=== PATIENT | female | born 1950 | race Two or more races ===

== ENCOUNTER 2018-04-10 21:34 | Emergency (ER) | payer OTHER ==
[~2018-04-10] VITALS: Ht 157.5 cm; Wt 77.1 kg
[2018-04-10 22:30] LABS: Basophils # (auto) 0.1 uL; Basophils % (auto) 0.6 % (0.0-2.0); Eosinophils # (auto) 0.2 uL; Eosinophils % (auto) 1.4 % (0.0-7.0); Hematocrit 43.8 % (36.0-46.0); Hemoglobin 14.7 g/dL (12.2-16.2); Lymphocytes # (auto) 5.2 uL; Lymphocytes % (auto) 31.3 % (10.0-50.0); Mean Corpuscular Hemoglobin 31.5 pg (28.0-32.0); Mean Corpuscular Hgb Conc. 33.5 g/dL (32.0-36.0); Mean Corpuscular Volume 93.9 fL (80.0-100.0); Monocytes # (auto) 0.8 uL; Monocytes % (auto) 5.1 % (0.0-12.0); Neutrophils # (auto) 10.3 uL; Neutrophils % (auto) 61.6 % (37.0-80.0); Nucleated Red Blood Cells % 0.1 %; Platelet Count (auto) 344 10^3/uL (140-450); Red Blood Cells 4.66 10^6/uL (4.0-5.20); White Blood Cell 16.7 10^3/uL (4.4-10.8)
[2018-04-10] MEDS ORDERED: METOPROLOL TARTRATE 1MG/1ML-5ML VIAL IV SCH (22:45)
[2018-04-10 22:46] LABS: Albumin 3.9 g/dL (3.4-5.0); Anion Gap 16 (5-15); Blood Urea Nitrogen 15 mg/dL (7-18); Calcium 9.5 mg/dL (8.5-10.1); Carbon Dioxide 21 mmol/L (21-32); Chloride 99 mmol/L (98-107); Glucose 169 mg/dL (74-106); Magnesium 2.1 mg/dL (1.6-2.6); Potassium 4.1 mmol/L (3.5-5.1); Sodium 136 mmol/L (136-145)
[2018-04-10 22:54] LABS: Alanine Aminotransferase 46 U/L (13-56); Alkaline Phosphatase 78 U/L (45-117); Aspartate Aminotransferase 40 U/L (15-37); BUN/Creatinine Ratio 17.9; Bilirubin, Total 0.5 mg/dL (0.2-1.0); GFR African American 88 mL/min; GFR Non-African American 72 mL/min; Total Protein 9.1 g/dL (6.4-8.2)
[2018-04-11] MEDS ORDERED: fentaNYL CITRATE 100 MCG/2 ML VL IV ONE
[2018-04-11 00:54] LABS: INR 0.95 (0.9-1.15); Partial Thromboplastin Time 25.8 sec (23.78-33.04); Prothrombin Time 10.2 sec (9.27-12.13)
[2018-04-11] MEDS ORDERED: HYDROcodone-ACET 5/325MG TAB PO ONE (05:45)
[2018-04-11 07:19] VITALS: BP 138/77
== END 2018-04-11 07:35 | disposition short-term general hospital (02) ==
LOC: ER 21:34 → EDBD 21:34 → ER 04-11 07:35
DX: I49.9 Cardiac arrhythmia, unspecified (principal); R04.0 Epistaxis; I10 Essential (primary) hypertension; E11.9 Type 2 diabetes mellitus without complications; Z88.8 Allergy status to other drugs, medicaments and biological substances
CPT/HCPCS: 36415; 71045; 80053; 83735; 83880; 84484; 85025; 85610; 85730; 93005; 94761; 96374; 96375; 99291; J3010